=== PATIENT | male | born 1950 | race Caucasian/White ===

== ENCOUNTER 2022-11-02 11:29 | Outpatient (CLI) | payer MEDICARE, SELFPAY ==
--- NOTE | 2022-11-02 11:42 | XRR_ITS ---
PROCEDURE INFORMATION: Exam: XR Left Hand Exam date and time: 11/02/2022 12:14 PM Age: 71 years old Clinical indication: Pain and injury or trauma; Other: Patient slipped on a staircase and hit hand on banister; Blunt trauma (contusions or hematomas); Left; Additional info: Hand pain on dorsum TECHNIQUE: Imaging protocol: Radiologic exam of the left hand. Views: 3 or more views. COMPARISON: No relevant prior studies available. FINDINGS: Bones/joints: No fracture or dislocation is seen. Mild degenerative changes. Osseous structures show no acute abnormality. Soft tissues: Lateral view demonstrates mild soft tissue swelling dorsally. XR/XR hand LT min 3V* [id number] IMPRESSION: No fracture or acute osseous abnormality of the left hand. Mild degenerative changes.
== END 2022-11-02 11:30 | disposition home or self-care (01) ==
PROVIDERS: Family Provider Family Medicine; PCP Family Medicine; Visit Provider Clinical Nurse Specialist Adult Health
DX: M19.042 Primary osteoarthritis, left hand (principal); M79.642 Pain in left hand
CPT/HCPCS: 73130

== ENCOUNTER → 2022-11-17 10:17 | Outpatient (BNVA) | payer MEDICARE, SELFPAY | PROVIDERS: Family Provider Family Medicine; PCP Family Medicine; Visit Provider Family Medicine | DX: Z51.81 Encounter for therapeutic drug level monitoring (principal); E11.9 Type 2 diabetes mellitus without complications; E55.9 Vitamin D deficiency, unspecified; R35.0 Frequency of micturition; L98.9 Disorder of the skin and subcutaneous tissue, unspecified; E78.5 Hyperlipidemia, unspecified; I10 Essential (primary) hypertension; Z13.220 Encounter for screening for lipoid disorders; Z00.00 Encounter for general adult medical examination without abnormal findings; I50.9 Heart failure, unspecified; M79.642 Pain in left hand; M25.511 Pain in right shoulder | CPT/HCPCS: 80053; 80061; 82306; 83036; 84153; 85025 ==

== ENCOUNTER → 2023-10-05 09:11 | Outpatient (BNVA) | payer MEDICARE, SELFPAY | PROVIDERS: Family Provider Family Medicine; PCP Family Medicine; Visit Provider Family Medicine | DX: Z12.5 Encounter for screening for malignant neoplasm of prostate (principal); I42.0 Dilated cardiomyopathy; I50.9 Heart failure, unspecified | CPT/HCPCS: 80053; 80061; 84443; 85025; G0103 ==

== ENCOUNTER 2023-10-27 13:59 | Outpatient (CLI) | payer MEDICARE, SELFPAY ==
--- NOTE | 2023-10-27 14:06 | XRR_ITS ---
PROCEDURE INFORMATION: Exam: XR Chest Exam date and time: 10/27/2023 2:21 PM Age: 72 years old Clinical indication: Mass, lump, or swelling in the chest; Patient HX: Localized lump/palpable mass on left side of neck near clavicle; Additional info: R22.2 - localized swelling, mass and lump, trunk TECHNIQUE: Imaging protocol: Radiologic exam of the chest. Views: 2 views. COMPARISON: No relevant prior studies available. FINDINGS: Lungs: Unremarkable. No consolidation or mass. Pleural spaces: Unremarkable. No pleural effusion. No pneumothorax. Heart/Mediastinum: Unremarkable. No cardiomegaly. Bones/joints: Unremarkable. XR/XR chest 2V* [id number] IMPRESSION: No acute findings.
--- NOTE | 2023-11-01 14:30 | USCV_ITS ---
Phani Jones Age: 72 Gender: M : 1950 Exam Date: 11/01/2023 14:37 Ordering Phys: Adolfo Guzman DO Technologist: CT Exam Location[place] [facility] [place]ication: BP: 142 / 86 HR: 60 Rhythm: Sinus Technical Quality: Adequate MEASUREMENTS (Male / Female) Normal Values 2D ECHO LVOT Diameter 2.2 cm LV Ejection Fraction MOD 4C 51.9 % LV Ejection Fraction MOD 2C 56.7 % LV Ejection Fraction 2C AL 59.7 % LA Diameter 4.6 cm RA Systolic Volume 4C AL 52.2 ml RA Systolic Volume 4C MOD 51.3 ml LA Sys Volume AL 75.3 cm cubed LA Sys Volume Index AL 33.1 cm cubed/m squared Aorta at Sinotubular Diameter 2.9 cm IVC Diameter 1.8 cm M-MODE LA Ao Ratio MM 1.1 AV Cusp Separation MM 2.1 cm DOPPLER AV Peak Velocity 121.0 cm/s LVOT Peak Velocity 95.0 cm/s AV Area Cont Eq vti 3.4 cm squared AV Area Cont Eq pk 3.0 cm squared MV Peak Velocity 93.0 cm/s MV Area PHT 3.4 cm squared Mitral E to A Ratio 0.7 TV Peak Velocity 208.0 cm/s TR Peak Velocity 226.0 cm/s TR Peak Gradient 20.4 mmHg TV Peak E Velocity 60.0 cm/s Right Atrial Pressure 3.0 mmHg Pulmonary Artery Systolic Pressu 23.4 mmHg PV Peak Velocity 95.5 cm/s FINDINGS Left Ventricle Moderately enlarged left ventricular size, with moderate global hypokinesis. Ejection fraction 45%. Grade I/IV diastolic dysfunction (abnormal relaxation filling pattern), normal to mildly elevated filling pressures. Right Ventricle The right ventricle is normal in size and function. Right Atrium The right atrium is normal in size. Left Atrium Left atrium moderately enlarged Mitral Valve Structurally normal mitral valve without significant stenosis or prolapse. There is trace mitral regurgitation. Aortic Valve Structurally normal aortic valve without significant sclerosis or stenosis. There is trace aortic regurgitation. Tricuspid Valve Structurally normal tricuspid valve without significant stenosis trace regurgitation. Pulmonary artery systolic pressure is normal. Pulmonic Valve Structurally normal pulmonic valve without significant stenosis. There is no pulmonic regurgitation. Pericardium Normal pericardium without effusion. Aorta Normal ascending aorta dimension. IVC The inferior vena cava appears normal. CONCLUSIONS Moderately enlarged left ventricular size, with moderate global hypokinesis. Ejection fraction 45%. Grade I/IV diastolic dysfunction (abnormal relaxation filling pattern), normal to mildly elevated filling pressures. There is no pericardial effusion. There are no intracardiac masses. No significant valve abnormalities. Right atrial pressure is around 5 mm of mercury. Yanely Gonzales MD (Electronically Signed) Final Date: 01 November 2023 18:50 S
== END 2023-10-27 14:00 | disposition home or self-care (01) ==
LOC: RAD 14:01
PROVIDERS: Family Provider Family Medicine; PCP Family Medicine; Visit Provider Family Medicine
DX: R22.2 Localized swelling, mass and lump, trunk
CPT/HCPCS: 71046; 80053; 80061; 84443; 85025; G0103

== ENCOUNTER 2023-11-01 14:08 | Outpatient (CLI) | payer MEDICARE, SELFPAY ==
--- NOTE | 2023-11-01 | USCV_ITS ---
Phani Jones Age: 72 Gender: M : 1950 Exam Date: 11/01/2023 14:37 Ordering Phys: Adolfo Guzman DO Technologist: CT Exam Location: [facility] – [place] Indication: BP: 142 / 86 HR: 60 Rhythm: Sinus Technical Quality: Adequate MEASUREMENTS (Male / Female) Normal Values 2D ECHO LVOT Diameter 2.2 cm LV Ejection Fraction MOD 4C 51.9 % LV Ejection Fraction MOD 2C 56.7 % LV Ejection Fraction 2C AL 59.7 % LA Diameter 4.6 cm RA Systolic Volume 4C AL 52.2 ml RA Systolic Volume 4C MOD 51.3 ml LA Sys Volume AL 75.3 cm cubed LA Sys Volume Index AL 33.1 cm cubed/m squared Aorta at Sinotubular Diameter 2.9 cm IVC Diameter 1.8 cm M-MODE LA Ao Ratio MM 1.1 AV Cusp Separation MM 2.1 cm DOPPLER AV Peak Velocity 121.0 cm/s LVOT Peak Velocity 95.0 cm/s AV Area Cont Eq vti 3.4 cm squared AV Area Cont Eq pk 3.0 cm squared MV Peak Velocity 93.0 cm/s MV Area PHT 3.4 cm squared Mitral E to A Ratio 0.7 TV Peak Velocity 208.0 cm/s TR Peak Velocity 226.0 cm/s TR Peak Gradient 20.4 mmHg TV Peak E Velocity 60.0 cm/s Right Atrial Pressure 3.0 mmHg Pulmonary Artery Systolic Pressu 23.4 mmHg PV Peak Velocity 95.5 cm/s FINDINGS Left Ventricle Moderately enlarged left ventricular size, with moderate global hypokinesis. Ejection fraction 45%. Grade I/IV diastolic dysfunction (abnormal relaxation filling pattern), normal to mildly elevated filling pressures. Right Ventricle The right ventricle is normal in size and function. Right Atrium The right atrium is normal in size. Left Atrium Left atrium moderately enlarged Mitral Valve Structurally normal mitral valve without significant stenosis or prolapse. There is trace mitral regurgitation. Aortic Valve Structurally normal aortic valve without significant sclerosis or stenosis. There is trace aortic regurgitation. Tricuspid Valve Structurally normal tricuspid valve without significant stenosis trace regurgitation. Pulmonary artery systolic pressure is normal. Pulmonic Valve Structurally normal pulmonic valve without significant stenosis. There is no pulmonic regurgitation. Pericardium Normal pericardium without effusion. Aorta Normal ascending aorta dimension. IVC The inferior vena cava appears normal. CONCLUSIONS Moderately enlarged left ventricular size, with moderate global hypokinesis. Ejection fraction 45%. Grade I/IV diastolic dysfunction (abnormal relaxation filling pattern), normal to mildly elevated filling pressures. There is no pericardial effusion. There are no intracardiac masses. No significant valve abnormalities. Right atrial pressure is around 5 mm of mercury. Yanely Gonzales MD (Electronically Signed) Final Date: 01 November 2023 18:50 S
== END 2023-11-01 14:09 | disposition home or self-care (01) ==
LOC: RAD 14:08
PROVIDERS: Family Provider Family Medicine; PCP Family Medicine; Visit Provider Family Medicine
DX: I42.0 Dilated cardiomyopathy (principal)
CPT/HCPCS: 93306

== ENCOUNTER 2023-11-15 12:02 | Emergency (ER) | payer MEDICARE, SELFPAY ==
[2023-11-15] VITALS (8 sets, daily range): BP systolic 138–181; BP diastolic 74–99; PULSE 54–73; RESP 14–16; TEMP 35.1; O2SAT 94–99; BMI 29.4
[2023-11-15 12:21] LABS: Basophils # 0.1 10^3/uL (0.0-0.1); Basophils % 0.8 %; Eosinophils # 0.4 10^3/uL (0.0-0.8); Eosinophils % 5.6 %; Hematocrit 43.9 % (37-53); Lymphocytes # 1.4 10^3/uL (0.8-4.8); Lymphocytes % 19.1 %; Mean Corpuscular HGB Conc 32.6 g/dL (30-55); Mean Corpuscular Hemoglobin 32.4 pg (27-33); Mean Corpuscular Volume 99.3 fl (82-101); Mean Platelet Volume 9.7 fL (7.4-10.4); Monocytes # 0.5 10^3/uL (0.2-0.9); Monocytes % 6.2 %; Neutrophils # 5.14 10^3/uL (1.8-7.7); Nucleated Red Blood Cells % 0 %; Platelet Count 206 10^3/cmm (157-399); Red Blood Count 4.42 10^6/uL (3.85-5.65); Red Cell Distribution Width 12.6 % (12.1-15.1); White Blood Count 7.55 10^3/uL (3.29-11.43)
[2023-11-15 12:37] LABS: Alanine Aminotransferase 18 U/L (0-41); Albumin Level 4.3 g/dL (3.5-5.2); Alkaline Phosphatase 98 U/L (40-130); Anion Gap 17.1 (5-19); Aspartate Amino Transferase 19 U/L (0-40); Blood Urea Nitrogen 36 mg/dL (8-23); Calcium 9.4 mg/dL (8.5-10.5); Carbon Dioxide 22 mmol/L (22-29); Chloride 107 mmol/L (98-107); Globulin 2.7 g/dL (1.3-4.6); Glucose 176 mg/dL (65-115); Lipase 25 U/L (13-60); Osmolality Calculated 305 mOsm/kg (285-295); Potassium 5.1 mmol/L (3.5-5.1); Sodium 141 mmol/L (136-145); Total Bilirubin 0.4 mg/dL (0.15-1.2)
[2023-11-15 12:39] LABS: Creatinine Clr Calc Pharmacy 54.1053
--- NOTE | 2023-11-15 12:55 | CT_ITS ---
WS: [id number] CT ABDOMEN PELVIS TECHNIQUE: Contrast-enhanced CT of the abdomen and pelvis with coronal and sagittal reformatted image s. CLINICAL INFORMATION: llq and flank pain COMPARISON: None. DLP: 874.[address] scans at [facility] use at least one of these dose optimization techniques: automated e xposure control; mA and/or kV adjustment per patient size (includes targeted exams where dose is matc hed to clinical indication); or iterative reconstruction. FINDINGS: 3 mm obstructing calculus distal LEFT ureter in the pelvis. Mild LEFT ureterectasis and pelvicaliecta sis. LEFT renal cysts. Advanced hydronephrosis RIGHT kidney with chronic appearing obstruction. Obstructing calculus RIGHT p roximal ureter measuring 6 mm. Additional nonobstructing calyceal tip calculi RIGHT kidney. Sigmoid diverticulosis. No evidence of acute diverticulitisSmall. Esophageal hiatal hernia. Hepatomeg piedad with diffuse fatty infiltration of the liver. Small hepatic cyst. Normal portal vein and splenic vein. Fatty atrophy of the pancreas. Normal caliber abdominal aorta. Aortic calcification. Enlarged prostate measuring 5 cm. Recommend correlation PSA. CT/CT abdomen pelvis w con* [id number] IMPRESSION: 1. 3 mm obstructing calculus distal LEFT ureter in the pelvis. Mild LEFT urete rectasis and pelvicaliectasis. 2. Advanced hydronephrosis RIGHT kidney with chronic appearing obstruction rosy cribed above. 6 mm obstructing RIGHT proximal ureteral calculus just distal to the UPJ. 3. Enlarged prostate measuring 5 cm. Recommend correlation PSA.
--- NOTE | 2023-11-15 12:58 | ED_ITS ---
HPI - Abdominal Pain 2 General: Chief Complaint: Abdominal Pain Stated Complaint: Kidney pain Time Seen by Provider: 11/15/23 12:41 Source: patient Mode of arrival: ambulatory Limitations: no limitations History of Present Illness: 72-year-old male states that he start bentley ving left flank pain last night states radiates to his left lower quadrant today states pain has been severe in nature rates it a 9 out of 10 he had some vomiting as well. He states he had a kidney stone years ago and this feels similar no history of diverticulitis denies any fever denies any diarrhea. Associated Symptoms: Reports nausea and vomiting; Denies chills, diarrhea, dysuria and fever(s) Related Data Home Medications Medication Instructions Recorded Confirmed ascorbic acid (vitamin C) 500 mg 500 mg PO QPM 11/17/22 11/15/23 tablet cyanocobalamin (vitamin B-12) 1,000 mcg PO DAILY 11/17/22 11/15/23 1,000 mcg capsule zinc methionine sulfate 15 1 cap PO DAILY 11/17/22 11/15/23 mg-copper gluconate 1 mg capsule (Zinc Balance) cholecalciferol (vitamin D3) 50 25 mcg PO DAILY 11/28/22 11/15/23 mcg (2,000 unit) capsule aspirin 81 mg tablet,delayed 81 mg PO QPM 11/15/23 11/15/23 release omega 2-qnn-qph-fish oil 1,000 mg 1 cap PO DAILY 11/15/23 11/15/23 (120 mg-180 mg) capsule (Fish Oil) simvastatin 40 mg tablet 40 mg PO QPM 11/15/23 11/15/23 Previous Rx's Medication Instructions Recorded carvedilol 6.25 mg tablet 6.25 mg PO BID #180 tabs 01/11/23 lisinopril 20 mg tablet 20 mg PO DAILY #90 tabs 01/11/23 hydrocodone 5 mg-acetaminophen 325 1 tab PO Q6H PRN pain #14 tabs 11/15/23 mg tablet ondansetron 4 mg disintegrating 4 mg PO Q6H PRN nausea and 11/15/23 tablet vomiting #14 tabs Allergies Allergy/AdvReac Type Severity Reaction Status Date / Time Penicillins Allergy Unknown Unknown Verified 11/15/23 13:17 Review of Systems 2 Const: Denies: fever(s), chills, body aches or change in appetite ENMT: Denies: throat pain or dental pain Card: Denies: chest pain Resp: Denies: dyspnea GI: Reports: abdominal pain, nausea and vomiting; Denies: diarrhea : Denies: dysuria Musc: Denies: neck pain or back pain Skin/Breast: Denies: rash Neuro: Denies: headache(s) PFSH ED 2 PFSH: Medical History Glucose intolerance Dyslipidemia HTN (hypertension) DCM (dilated cardiomyopathy) CHF (congestive heart failure) 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 Surgical History Hx of sebaceous cyst History of ankle fracture Pins/screws - History of kidney stones S/P appendectomy Family History Mother Cancer BREAST Grandfather CAD (coronary artery disease) MATERNAL Grandmother Cancer LUNG/PATERNAL Father Lymphoma Sister Lupus Social History Smoking and tobacco/nicotine status: never used tobacco/nicotine Alcohol intake: current Alcohol intake frequency: 0-2 Drinks per Day Alcohol type: hard liquor Substance/Drug Use: never Caregiver/support person: No Lives independently: No Household members: spouse Marital status: Do you think of yourself as: Straight/Heterosexual Current gender identity: Male Physical Exam 2 Const: COMMON NORMALS: no acute distress, patient oriented x3 and healthy appearing HENMT: COMMON NORMALS: normocephalic and atraumatic HEAD & SCALP: n ormocephalic and atraumatic Neck/C-Spine: COMMON NORMALS: full ROM and supple Chest: COMMONS NORMALS: normal inspection of the chest Resp: COMMON NORMALS: normal respiratory effort, No retractions, No use of accessory muscles and clear to auscultation bilaterally AUSCULTATION: clear to auscultation bilaterally Cardio: COMMON NORMALS: regular rate, regular rhythm and No murmurs present (Cardio) RATE: regular rate RHYTHM: regular rhythm GI: COMMON NORMALS: Normal to inspection, nondistended, normoactive bowel sounds present, Soft to palpation and no masses PALPATION: Yes Soft to palpation OTHER: llq enderness Extremity: COMMON NORMALS: normal to inspection and full ROM Neuro: COMMON NORMALS: patient oriented x3, moves all extremities and no focal motor deficits Psych: COMMON NORMALS: mental status grossly normal, Normal thought process present and cooperative THOUGHT PROCESS: Normal thought process present Skin: COMMON NORMALS: no rashes or lesions noted and no wounds GENERAL SKIN EXAM: no rashes or lesions noted Course 2 Vital Signs: Vital signs: Vital Signs Temperature 95.1 F L 11/15/23 12:07 Pulse Rate 55 L 11/15/23 13:05 Respiratory Rate 16 11/15/23 14:46 Blood Pressure 170/88 11/15/23 13:05 Pulse Oximetry 98 11/15/23 13:13 Oxygen Delivery Me thod Room Air 11/15/23 13:05 MDM - Abdominal Pain Medical Decision Making 72-year-old male presenting here with left flank pain he was found to have a kidney stone, left side is 3 mm should pass patient is found to have kidney stone on the right as well as likely chronic states he had a stone there 10 years ago he has no right flank pain. No signs of infection he stable for discharge follow-up urology return if worsening. He is to follow-up with urology return if worsening. Medical Records I reviewed the patient's medical records. Lab Data I reviewed the patient's lab results. 11/15/23 12:15 11/15/23 12:15 Labs/Radiology: Radiology Impressions Abdomen/Pelvis CT 11/15/23 12:55 IMPRESSION: 1. 3 mm obstructing calculus distal LEFT ureter in the pelvis. Mild LEFT ureterectasis and pelvicaliectasis. 2. Advanced hydronephrosis RIGHT kidney with chronic appearing obstruction described above. 6 mm obstructing RIGHT proximal ureteral calculus just distal to the UPJ. 3. Enlarged prostate measuring 5 cm. Recommend correlation PSA. Laboratory Results WBC 7.55 10^3/uL (3.29-11.43) 11/15/23 12:15 RBC 4.42 10^6/uL (3.85-5.65) 11/15/23 12:15 Hgb 14.30 g/dL (11.27-16.99) 11/15/23 12:15 Hct 43.9 % (37-53) 11/15/23 12:15 MCV 99.3 fl (82-101) 11/15/23 12:15 MCH 32.4 pg (27-33) 11/15/23 12:15 MCHC 32.6 g/dL (30-55) 11/15/23 12:15 RDW 12.6 % (12.1-15.1) 11/15/23 12:15 Plt Count 206 10^3/cmm (157-399) 11/15/23 12:15 MPV 9.7 fL (7.4-10.4) 11/15/23 12:15 Neut % (Auto) 68.0 % 11/15/23 12:15 Lymph % (Auto) 19.1 % 11/15/23 12:15 [place] % (Auto) 6.2 % 11/15/23 12:15 Eos % (Auto) 5.6 % 11/15/23 12:15 Baso % (Auto) 0.8 % 11/15/23 12:15 Neut # (Auto) 5.14 10^3/uL (1.8-7.7) 11/15/23 12:15 Lymph # (Auto) 1.4 10^3/uL (0.8-4.8) 11/15/23 12:15 [place]idan # (Auto) 0.5 10^3/uL (0.2-0.9) 11/15/23 12:15 Eos # (Auto) 0.4 10^3/uL (0.0-0.8) 11/15/23 12:15 Baso # (Auto) 0.1 10^3/uL (0.0-0.1) 11/15/23 12:15 Nucleated RBC % (auto) 0 % 11/15/23 12:15 Nucleated RBCs # 0.0 /100WBC 11/15/23 12:15 Sodium 141 mmol/L (136-145) 11/15/23 12:15 Potassium 5.1 mmol/L (3.5-5.1) 11/15/23 12:15 Chloride 107 mmol/L (98-107) 11/15/23 12:15 Carbon Dioxide 22 mmol/L (22-29) 11/15/23 12:15 Anion Gap 17.1 (5-19) 11/15/23 12:15 BUN 36 mg/dL (8-23) H 11/15/23 12:15 Creatinine 1.5 mg/dL (0.7-1.2) H 11/15/23 12:15 GFR Calculation Not Reportable 11/15/23 12:15 Glucose 176 mg/dL (65-115) H 11/15/23 12:15 Calculated Osmolality 305 mOsm/kg (285-295) H 11/15/23 12:15 Calcium 9.4 mg/dL (8.5-10.5) 11/15/23 12:15 Total Bilirubin 0.4 mg/dL (0.15-1.2) 11/15/23 12:15 AST 19 U/L (0-40) 11/15/23 12:15 ALT 18 U/L (0-41) 11/15/23 12:15 Alkaline Phosphatase 98 U/L (40-130) 11/15/23 12:15 Total Protein 7.0 g/dL (6.6-8.7) 11/15/23 12:15 Albumin 4.3 g/dL (3.5-5.2) 11/15/23 12:15 Globulin 2.7 g/dL (1.3-4.6) 11/15/23 12:15 Lipase 25 U/L (13-60) 11/15/23 12:15 Urine Color Yellow (Yellow) 11/15/23 14:40 Urine Appearance Cloudy (CLEAR) A 11/15/23 14:40 Urine pH 5.5 (5-7) 11/15/23 14:40 Ur Specific [place] 1.019 (1.005-1.030) 11/15/23 14:40 Urine Protein 1+ (Negative) A 11/15/23 14:40 Urine Glucose (UA) Negative (Normal) 11/15/23 14:40 Urine Ketones Negative (Negative) 11/15/23 14:40 Urine Blood 3+ (Negative) A 11/15/23 14:40 Urine Nitrate Negative (Negative) 11/15/23 14:40 Urine Bilirubin Negative (Negative) 11/15/23 14:40 Urine Urobilinogen 1.0 mg/dL (Negative) 11/15/23 14:40 Ur Leukocyte Esterase 1+ (Negative) A 11/15/23 14:40 Urine RBC >100 /hpf (0-2) H 11/15/23 14:40 Urine WBC 11-20 /hpf (0-5) H 11/15/23 14:40 Ur Squamous Epith Cells 0-5 /hpf (0-5) 11/15/23 14:40 Amorphous Sediment Not Reportable 11/15/23 14:40 Urine Bacteria None seen /hpf (NONE) 11/15/23 14:40 Hyaline Casts 2.05 /lpf 11/15/23 14:40 All radiology interpretation(s) finalized by discharge Discharge Plan Discharge Patient Disposition: Home Clinical Impression: Kidney stone Condition: Stable Prescriptions: New hydrocodone-acetaminophen 5-325 mg tablet 1 tab PO Q6H PRN (Reason: pain) Qty: 14 0RF ondansetron 4 mg tablet,disintegrating 4 mg PO Q6H PRN (Reason: nausea and vomiting) Qty: 14 0RF No Action cyanocobalamin (vitamin B-12) 1,000 mcg capsule 1,000 mcg PO DAILY Zinc Balance 15-1 mg capsule 1 cap PO DAILY ascorbic acid (vitamin C) 500 mg tablet 500 mg PO QPM cholecalciferol (vitamin D3) 50 mcg (2,000 unit) capsule 25 mcg PO DAILY carvedilol 6.25 mg tablet 6.25 mg PO BID Qty: 180 3RF Rx Instructions: must administer with a meal/food lisinopril 20 mg tablet 20 mg PO DAILY Qty: 90 3RF Aspir-81 81 mg Tablet,Delayed Release (Dr/Ec) 81 mg PO QPM Fish Oil 1,000 mg (120 mg-180 mg) Capsule 1 cap PO DAILY simvastatin 40 mg tablet 40 mg PO QPM Discharge Orders: Discharge ED (Routine); Ordered 11/15/23 Ordered By: Henna Martinez Referrals: Adolfo Guzman DO [Primary Care Provider] - 4-7 days Discharge Diet: Advance as tolerated Discharge Activity: Resume usual activity Patient Instructions: Kidney Stones (ED), Opioid Safety Coding Level of Care Code ED [employer] for Narda Brizuela
[2023-11-15] MEDS: sodium chloride 0.9% 1,000 ML 999 ML IV (13:09)
[2023-11-15] MEDS: ondansetron 2 mg/ML SDV 2 mL 4 MG IVP (13:10)
[2023-11-15] MEDS: ketorolac 30 mg/mL INJ 15 MG IVP (13:12)
[2023-11-15] MEDS: HYDROmorphone 1 mg/mL INJ 1 mL 0.5 MG IVP (13:13)
[2023-11-15] MEDS: iohexol 350 mg/mL 500 mL Btl (per mL) IV (13:25)
[2023-11-15] MEDS: morphine 4 mg/mL SDV 1 mL IVP (14:46)
[2023-11-15 14:57] LABS: Charge for UA Resulting for Rev
[2023-11-15 14:59] LABS: Bilirubin Urine Negative (Negative); Blood Urine 3+ (Negative); Glucose Urine UA Negative (Normal); Ketones Urine Negative (Negative); Leukocyte Esterase Urine 1+ (Negative); Nitrate Urine Negative (Negative); Protein Urine 1+ (Negative); Specific Gravity, Urine 1.019 (1.005-1.030); Urine Appearance Cloudy (CLEAR); Urine Color Yellow (Yellow); pH Urine 5.5 (5-7)
[2023-11-15 15:01] LABS: Bacteria Urine None Seen /hpf; Hyaline Casts Urine 2.05 /lpf; RBC Urine >100 /hpf (0-2); Squamous Epithelial Cell Urine 0-5 /hpf (0-5)
[2023-11-15 15:03] LABS: Add Urine Culture? Yes
[2023-11-15] MEDS: HYDROcodone-acetaminophen 5-325 mg Tablet 1 TAB PO (15:41)
== END 2023-11-15 16:07 | disposition home or self-care (01) ==
PROVIDERS: Emergency Provider Emergency Medicine; PCP Family Medicine
DX: N20.0 Calculus of kidney (principal); Z79.82 Long term (current) use of aspirin; E78.5 Hyperlipidemia, unspecified; I11.0 Hypertensive heart disease with heart failure; I50.9 Heart failure, unspecified; I42.0 Dilated cardiomyopathy
CPT/HCPCS: 36415; 74177; 80053; 81003; 81015; 83690; 85025; 87086; 96361; 96374; 96375; 99285; J1170; J1885; J2270; J2405; J7030; Q9967

== ENCOUNTER → 2024-02-20 13:42 | Outpatient (BNVA) | payer MEDICARE, SELFPAY | PROVIDERS: PCP Family Medicine; Referring Provider Family Medicine; Visit Provider Internal Medicine Cardiovascular Disease | DX: R07.9 Chest pain, unspecified (principal) | CPT/HCPCS: 93005 ==

== ENCOUNTER 2024-07-09 11:25 | Outpatient (CLI) | payer MEDICARE, SELFPAY ==
--- NOTE | 2024-07-09 11:36 | XR_ITS ---
WS: [id number] Exam: XR finger LT min 2V [id number] Date/Time of Exam: 07/09/2024 11:42 AM Reason For Exam: LACERATION OF FINGER OF L HAND The LEFT index finger is targeted for radiographic evaluation. No fracture. Moderate DJD at the DIP joint. No soft tissue foreign bodies are seen. XR/XR finger LT min 2V [id number] IMPRESSION: 1. Degenerative change. No fracture.
== END 2024-07-09 11:26 | disposition home or self-care (01) ==
PROVIDERS: PCP Family Medicine; Visit Provider Nurse Practitioner Family
DX: S61.211A Laceration without foreign body of left index finger without damage to nail, initial encounter (principal); M19.042 Primary osteoarthritis, left hand; X58.XXXA Exposure to other specified factors, initial encounter
CPT/HCPCS: 73140

== ENCOUNTER → 2024-09-30 10:00 | Outpatient (BNVA) | payer MEDICARE, SELFPAY | PROVIDERS: PCP Family Medicine; Visit Provider Family Medicine | DX: I10 Essential (primary) hypertension (principal); Z12.5 Encounter for screening for malignant neoplasm of prostate; I42.0 Dilated cardiomyopathy; I50.9 Heart failure, unspecified; E78.5 Hyperlipidemia, unspecified | CPT/HCPCS: 80053; 80061; 85025; G0103 ==

== ENCOUNTER → 2025-02-18 12:51 | Outpatient (BNVA) | payer MEDICARE, SELFPAY | PROVIDERS: PCP Family Medicine; Visit Provider Internal Medicine Cardiovascular Disease | DX: I42.0 Dilated cardiomyopathy (principal); I48.92 Unspecified atrial flutter; E78.5 Hyperlipidemia, unspecified; R19.5 Other fecal abnormalities | CPT/HCPCS: 99214 ==